=== PATIENT | female | born 1960 | race Hispanic/Latino ===

== ENCOUNTER → 2021-04-01 | Day surgery (SDC) | payer BC, OTHER ==
[~2021-04-01] MED LIST: ATORVASTATIN CA20 MG PO; CEFTRIAXONE SOD 1 GM VIAL ONE; DEXAMETHASONE SOD PHOS INJ 4 MG/ML VIAL ONE; IOPAMIDOL 300MG/ML 50ML INFUS..BTL IV ONE; LEVOTHYROXINE112 MC1 PO; LIDOCAINE HCL 2% JELLY 5 ML TUBE ONE; LIDOCAINE HCL 2% LOCAL INJ 5 ML SDV VIAL INJ ONE; OMEGA 3 1,0001 EACH PO; ONDANSETRON HCL INJ 2MG/ML 2ML 2 MG/ML VIAL ONE; POVIDONE IODINE 0.05% 0.05 % ML PO ONE; PROPOFOL IV EMULSION 10 MG/ML 20 ML VIAL ONE; SEVOFLURANE INHAL SOLN 250 ML PEN BTL ONE; SODIUM CHLORIDE 0.9% 50ML 100 ML ONE
[2021-04-01 08:10] VITALS: BP 145/83
== END | disposition home or self-care (01) ==
LOC: OR 05:26
PROVIDERS: ATTEND Urology
DX: N39.0 Urinary tract infection, site not specified (principal); N81.10 Cystocele, unspecified; R35.1 Nocturia; E03.9 Hypothyroidism, unspecified; E66.01 Morbid (severe) obesity due to excess calories; Z88.1 Allergy status to other antibiotic agents; Z01.810 Encounter for preprocedural cardiovascular examination; Z01.812 Encounter for preprocedural laboratory examination; Z20.822 Contact with and (suspected) exposure to COVID-19; Z68.31 Body mass index [BMI] 31.0-31.9, adult
CPT/HCPCS: 74420; 93005; C1758; J0696; J1100; J2001; J2405; U0002

== ENCOUNTER 2021-12-13 11:04 | Emergency (ER) | payer OTHER ==
[~2021-12-13] VITALS: Ht 160 cm; Wt 78.5 kg
[~2021-12-13 11:04] MED LIST changes: -CEFTRIAXONE SOD 1 GM VIAL ONE; -DEXAMETHASONE SOD PHOS INJ 4 MG/ML VIAL ONE; -IOPAMIDOL 300MG/ML 50ML INFUS..BTL IV ONE; -LIDOCAINE HCL 2% JELLY 5 ML TUBE ONE; -LIDOCAINE HCL 2% LOCAL INJ 5 ML SDV VIAL INJ ONE; -ONDANSETRON HCL INJ 2MG/ML 2ML 2 MG/ML VIAL ONE; -POVIDONE IODINE 0.05% 0.05 % ML PO ONE; -PROPOFOL IV EMULSION 10 MG/ML 20 ML VIAL ONE; -SEVOFLURANE INHAL SOLN 250 ML PEN BTL ONE; -SODIUM CHLORIDE 0.9% 50ML 100 ML ONE
[2021-12-13] MEDS ORDERED: SODIUM CHLORIDE 0.9% 1000ML 1,000 ML IV STA (11:35)
[2021-12-13] MEDS ORDERED: IOPAMIDOL 370 MG/ML 200 ML INFUS..BTL INJ ONE (11:50)
[2021-12-13] MEDS ORDERED: SODIUM CHLORIDE 0.9% 50ML 50 ML ONE (11:50)
[2021-12-13] MEDS ORDERED: SODIUM CHLORIDE 0.9% 1000ML 1,000 ML ONE (11:53)
[2021-12-13] MEDS ORDERED: DIATRIZOATE MEGL/DIATRIZOA SOD 30 ML BTL PO ONE (11:54)
[2021-12-13] MEDS ORDERED: ONDANSETRON ODT4 MG PO (13:50)
[2021-12-13] MEDS ORDERED: CIPRO500 MG PO (13:50)
[2021-12-13] MEDS ORDERED: METRONIDAZOLE500 MG PO (13:50)
[2021-12-13] MEDS ORDERED: ACETAMINOPHEN-1 EAC4 PO (13:50)
== END 2021-12-13 14:00 | disposition home or self-care (01) ==
LOC: FSED 11:08
DX: R10.32 Left lower quadrant pain (principal); K57.32 Diverticulitis of large intestine without perforation or abscess without bleeding; N20.0 Calculus of kidney; K76.0 Fatty (change of) liver, not elsewhere classified; E78.5 Hyperlipidemia, unspecified; E03.9 Hypothyroidism, unspecified
CPT/HCPCS: 74177; 80048; 81003; 85025; 99284; J7030; Q9967

== ENCOUNTER → 2022-02-15 | Day surgery (SDC) | payer OTHER ==
[~2022-02-15] MED LIST changes: +ACETAMINOPHEN-1 EAC4 PO; +CIPRO500 MG PO; +FENOFIBRATE145 MG PO; +FENTANYL CITRATE/PF 100MCG/2 ML INJ ONE; +GLUCAGON FOR INJ 1 MG VIAL ONE; +HYOSCYAMINE SULFATE 0.5 MG/ML INJ ONE; +LIDOCAINE HCL 2% LOCAL INJ 5 ML SDV VIAL INJ ONE; +METRONIDAZOLE500 MG PO; +MIDAZOLAM HCL 2 MG/2 ML VIAL ONE; +ONDANSETRON ODT4 MG PO; +PROPOFOL IV EMULSION 10 MG/ML 20 ML VIAL ONE
[2022-02-15 10:42] VITALS: BP 118/78
== END | disposition home or self-care (01) ==
LOC: OR 07:36
PROVIDERS: ATTEND Internal Medicine Gastroenterology
DX: K57.92 Diverticulitis of intestine, part unspecified, without perforation or abscess without bleeding (principal); D12.4 Benign neoplasm of descending colon; K64.8 Other hemorrhoids; E78.5 Hyperlipidemia, unspecified; E03.9 Hypothyroidism, unspecified; N20.0 Calculus of kidney; M85.80 Other specified disorders of bone density and structure, unspecified site; Z88.1 Allergy status to other antibiotic agents; Z01.810 Encounter for preprocedural cardiovascular examination; Z01.812 Encounter for preprocedural laboratory examination; Z20.822 Contact with and (suspected) exposure to COVID-19; Z79.899 Other long term (current) drug therapy
CPT/HCPCS: 45378; 45380; 93005; J1610; J1980; J2001; J2250; J3010; U0002

== ENCOUNTER 2024-05-05 11:29 | Emergency (ER) | payer MEDICARE, OTHER ==
[~2024-05-05] VITALS: Ht 160 cm; Wt 75.3 kg
[~2024-05-05 11:29] MED LIST changes: +DICYCLOMINE HCL20 MG PO; -FENTANYL CITRATE/PF 100MCG/2 ML INJ ONE; -GLUCAGON FOR INJ 1 MG VIAL ONE; -HYOSCYAMINE SULFATE 0.5 MG/ML INJ ONE; -LIDOCAINE HCL 2% LOCAL INJ 5 ML SDV VIAL INJ ONE; -MIDAZOLAM HCL 2 MG/2 ML VIAL ONE; +NAPROSYN500 MG PO; -PROPOFOL IV EMULSION 10 MG/ML 20 ML VIAL ONE
[2024-05-05 11:38] VITALS: PULSE 71; RESP 16; TEMP 97.9; O2SAT 97
[2024-05-05] MEDS ORDERED: NAPROSYN500 MG PO (12:04)
[2024-05-05] MEDS ORDERED: TYLENOL325 MG PO (12:04)
[2024-05-05] MEDS: IBUPROFEN 200 MG TAB PO ONE (12:47)
== END 2024-05-05 12:50 | disposition home or self-care (01) ==
LOC: FSED 11:30
DX: M75.01 Adhesive capsulitis of right shoulder (principal); E03.9 Hypothyroidism, unspecified; E78.5 Hyperlipidemia, unspecified; Z88.1 Allergy status to other antibiotic agents; Z79.1 Long term (current) use of non-steroidal anti-inflammatories (NSAID); Z79.899 Other long term (current) drug therapy
CPT/HCPCS: 99283

== ENCOUNTER 2025-01-04 07:42 | Emergency (ER) | payer MEDICARE, OTHER ==
[~2025-01-04 07:42] MED LIST changes: +TYLENOL325 MG PO
[2025-01-04 07:45] VITALS: PULSE 94; RESP 20; TEMP 98.4; O2SAT 97
[2025-01-04] MEDS ORDERED: DEXAMETHASONE SOD PHOS INJ 4 MG/ML SDV ONE (08:02)
[2025-01-04] MEDS ORDERED: IBUPROFEN 200 MG TAB ONE (08:02)
[2025-01-04] MEDS ORDERED: ACETAMINOPHEN 325 MG TAB ONE (08:02)
[2025-01-04] MEDS ORDERED: METHOTREXATE2.5 MG PO (08:06)
[2025-01-04] MEDS ORDERED: IBUPROFEN600 MG PO (08:06)
[2025-01-04] MEDS ORDERED: FOLIC ACID0.4 MG PO (08:06)
[2025-01-04] MEDS ORDERED: PREDNISONE20 MG PO (08:07)
[2025-01-04] MEDS: DEXAMETHASONE SOD PHOS INJ 4 MG/ML SDV IM ONE (08:10)
[2025-01-04] MEDS: ACETAMINOPHEN 325 MG TAB PO ONE (08:11)
[2025-01-04] MEDS: IBUPROFEN 200 MG TAB PO ONE (08:11)
== END 2025-01-04 08:17 | disposition home or self-care (01) ==
LOC: FSED 07:46
DX: M25.542 Pain in joints of left hand (principal); M25.541 Pain in joints of right hand; M79.18 Myalgia, other site; M06.9 Rheumatoid arthritis, unspecified; E78.5 Hyperlipidemia, unspecified; E03.9 Hypothyroidism, unspecified; Z87.19 Personal history of other diseases of the digestive system
CPT/HCPCS: 99284; J1100